=== PATIENT | female | born 1990 | race African-American/Black ===

== ENCOUNTER 2020-08-26 16:14 | Emergency (ER) | payer MEDICAID ==
[~2020-08-26] VITALS: Ht 170.2 cm; Wt 70.5 kg
[2020-08-26 17:42] VITALS: BP 103/61
[2020-08-26] MEDS ORDERED: CEPHALEXIN MONOHYDRATE 500 MG CAPSULE PO ONE (17:45)
[2020-08-26] MEDS ORDERED: SULFAMETHOX/TRIMETH DS 800-160 MG/TABLET PO ONE (17:45)
== END 2020-08-26 17:57 | disposition home or self-care (01) ==
LOC: EMS 16:14
DX: L02.416 Cutaneous abscess of left lower limb (principal); L02.415 Cutaneous abscess of right lower limb; F19.10 Other psychoactive substance abuse, uncomplicated; F41.9 Anxiety disorder, unspecified; J45.909 Unspecified asthma, uncomplicated; F32.9 Major depressive disorder, single episode, unspecified; F17.210 Nicotine dependence, cigarettes, uncomplicated; F12.90 Cannabis use, unspecified, uncomplicated
CPT/HCPCS: 99283

== ENCOUNTER 2020-09-11 18:35 | Inpatient (IN) | payer MEDICAID ==
[~2020-09-11] VITALS: Ht 160 cm; Wt 64.0 kg
[2020-09-11 20:16] LABS: COVID AG,FIA SOURCE NASOPHARYNGEAL
[2020-09-11] MEDS ORDERED: HALOPERIDOL 5 MG TABLET PO PRN (20:30)
[2020-09-12 00:19] VITALS: BP 124/83
[2020-09-12] MEDS: ZOLPIDEM TARTRATE 10 MG TABLET PO PRN (00:22)
[2020-09-12] MEDS: LORazepam 2 MG TABLET PO PRN ×3 (00:22→20:40)
[2020-09-12] MEDS ORDERED: CloNIDine HCL 0.1 MG TABLET PO PRN (07:30)
[2020-09-12] MEDS ORDERED: ACETAMINOPHEN 325 MG TABLET PO PRN (07:30)
[2020-09-12] MEDS ORDERED: ALBUTEROL SULFATE HFA 90 MCG/PUFF 8 GM INHALER IH PRN (07:30)
[2020-09-12] MEDS ORDERED: GuaiFENesin/D-METHORPHAN [SUGAR-FREE] 200-20MG/10 ML SYRUP UDCUP PO PRN (07:30)
[2020-09-12] MEDS ORDERED: PETROLATUM,WHITE 28 GM JELLY TP PRN (07:30)
[2020-09-12] MEDS ORDERED: ONDANSETRON HCL 4 MG TABLET PO PRN (07:30)
[2020-09-12] MEDS ORDERED: NICOTINE 14 MG/24 HOUR PATCH TD PRN (07:30)
[2020-09-12] MEDS ORDERED: MAG HYDROX/AL HYDROX/SIMETH ES 30 ML SUSPENSION UDCUP PO PRN (07:30)
[2020-09-12] MEDS ORDERED: DOCUSATE SODIUM 100 MG CAPSULE PO PRN (07:30)
[2020-09-12] MEDS ORDERED: LOPERAMIDE HCL 2 MG CAPSULE PO PRN (07:30)
[2020-09-12] MEDS ORDERED: MAGNESIUM HYDROXIDE SUSPENSION 30 ML UDCUP PO PRN (07:30)
[2020-09-12] MEDS ORDERED: IBUPROFEN 400 MG TABLET PO PRN (07:30)
[2020-09-12] MEDS: BACITRACIN 28 GM OINTMENT TP SCH ×2 (08:37→19:29)
[2020-09-12] MEDS: SERTRALINE HCL 50 MG TABLET PO SCH (09:42)
[2020-09-12] MEDS: OLANZapine 5 MG TABLET PO SCH ×2 (09:42→19:29)
[2020-09-12 16:15] VITALS: BP 131/65
[2020-09-13 01:05] VITALS: BP 129/70
[2020-09-13 07:38] LABS: BASOPHILS % (AUTO) 0.8 % (0.0-2.0); EOSINOPHILS % (AUTO) 4.1 % (1.0-6.0); HEMATOCRIT 38.4 % (36-46); HEMOGLOBIN 13.2 g/dL (12.0-16.0); HEMOGLOBIN A1C 5.3 % (3.8-5.6); LYMPHOCYTES # (AUTO) 1.5 K/uL (1.0-4.8); LYMPHOCYTES % (AUTO) 34.6 % (22.0-44.0); MEAN CORPUSCULAR HEMOGLOBIN 31.3 pg (26.0-34.0); MEAN CORPUSCULAR HGB CONC 34.5 G/dL (31.0-37.0); MEAN CORPUSCULAR VOLUME 91 fL (80-100); MONOCYTES # (AUTO) 0.3 K/uL (0.1-1.0); MONOCYTES % (AUTO) 6.2 % (2.0-9.0); NEUTROPHILS # (AUTO) 2.3 K/uL (1.8-7.7); NEUTROPHILS % (AUTO) 54.3 % (40.0-70.0); PLATELET COUNT (AUTO) 249 K/uL (150-450); RED BLOOD CELL COUNT(AUTO) 4.22 MIL/uL (4.00-5.20); RED CELL DISTRIBUTION WIDTH 12.6 % (11.5-14.5)
[2020-09-13 08:04] LABS: ALANINE AMINOTRANSFERASE 115 U/L (12-78); ALBUMIN 2.9 g/dL (3.4-5.0); ALKALINE PHOSPHATASE 63 U/L (46-116); ANION GAP 8 mmol/L (8-16); ASPARTATE AMINOTRANSFERASE 60 U/L (15-37); BILIRUBIN,TOTAL 0.3 mg/dL (0.1-1.0); CALCIUM, TOTAL 8.6 mg/dL (8.8-10.5); CARBON DIOXIDE 26 mmol/L (22-29); CHLORIDE 103 mmol/L (98-107); CHOL/HDL RATIO 2.3 (3.9-5.7); CHOLESTEROL 124 mg/dL (131-200); GLOMERULAR FILTR. RATE CALC > 60 mL/min (>60); GLUCOSE,RANDOM 80 mg/dL (70-110); HDL CHOLESTEROL 54 mg/dL (40-60); LDL CHOL (CALC.) 59 mg/dL (0-130); SODIUM SERUM 137 mmol/L (136-145); TRIGLYCERIDES 55 mg/dL (15-150); UREA NITROGEN, BLOOD 15 mg/dL (7-18)
[2020-09-13] MEDS: OLANZapine 5 MG TABLET PO SCH ×2 (08:58→16:27)
[2020-09-13] MEDS: SERTRALINE HCL 50 MG TABLET PO SCH (08:58)
[2020-09-13] MEDS: BACITRACIN 28 GM OINTMENT TP SCH ×2 (08:58→16:27)
[2020-09-13] MEDS: LORazepam 2 MG TABLET PO PRN ×2 (08:58→16:27)
[2020-09-13 16:17] VITALS: BP 111/62
[2020-09-14 05:05] VITALS: BP 117/64
[2020-09-14 08:30] VITALS: BP 135/84
[2020-09-14] MEDS: SERTRALINE HCL 50 MG TABLET PO SCH (09:01)
[2020-09-14] MEDS: OLANZapine 5 MG TABLET PO SCH ×2 (09:01→16:25)
[2020-09-14] MEDS: BACITRACIN 28 GM OINTMENT TP SCH ×2 (09:01→16:24)
[2020-09-14 16:32] VITALS: BP 106/65
[2020-09-15 04:56] VITALS: BP 115/66
[2020-09-15 08:33] VITALS: BP 121/56
[2020-09-15] MEDS: OLANZapine 5 MG TABLET PO SCH ×2 (08:49→18:16)
[2020-09-15] MEDS: SERTRALINE HCL 50 MG TABLET PO SCH (08:50)
[2020-09-15] MEDS: BACITRACIN 28 GM OINTMENT TP SCH ×2 (08:50→18:25)
[2020-09-15] MEDS: LORazepam 2 MG TABLET PO PRN ×2 (09:02→18:16)
[2020-09-15 16:40] VITALS: BP 130/76
[2020-09-15] MEDS: MUPIROCIN CALCIUM 2% 15 GM CREAM TP SCH (17:00)
[2020-09-16 05:57] VITALS: BP 127/68
[2020-09-16] MEDS: BACITRACIN 28 GM OINTMENT TP SCH ×2 (09:00→16:48)
[2020-09-16 09:08] VITALS: BP 124/74
[2020-09-16] MEDS: OLANZapine 5 MG TABLET PO SCH ×2 (10:48→16:47)
[2020-09-16] MEDS: SERTRALINE HCL 50 MG TABLET PO SCH (10:48)
[2020-09-16] MEDS: MUPIROCIN CALCIUM 2% 15 GM CREAM TP SCH ×2 (10:49→16:47)
[2020-09-16] MEDS: LORazepam 2 MG TABLET PO PRN ×2 (12:32→16:47)
[2020-09-16 18:08] VITALS: BP 124/67
[2020-09-17 00:59] VITALS: BP 118/65
[2020-09-17 08:18] LABS: ALANINE AMINOTRANSFERASE 153 U/L (12-78); ALBUMIN 3.3 g/dL (3.4-5.0); ALKALINE PHOSPHATASE 64 U/L (46-116); ANION GAP 8 mmol/L (8-16); ASPARTATE AMINOTRANSFERASE 71 U/L (15-37); BILIRUBIN,TOTAL 0.2 mg/dL (0.1-1.0); CALCIUM, TOTAL 8.8 mg/dL (8.8-10.5); CARBON DIOXIDE 27 mmol/L (22-29); CHLORIDE 104 mmol/L (98-107); CREATININE 0.99 mg/dL (0.60-1.30); GLOMERULAR FILTR. RATE CALC > 60 mL/min (>60); GLUCOSE,RANDOM 86 mg/dL (70-110); POTASSIUM 4.4 mmol/L (3.5-5.1); SODIUM SERUM 139 mmol/L (136-145); TOTAL PROTEIN, SERUM 7.4 g/dL (6.4-8.2); UREA NITROGEN, BLOOD 20 mg/dL (7-18)
[2020-09-17 08:19] VITALS: BP 132/63
[2020-09-17] MEDS: OLANZapine 5 MG TABLET PO SCH ×2 (08:19→16:40)
[2020-09-17] MEDS: SERTRALINE HCL 50 MG TABLET PO SCH (08:19)
[2020-09-17] MEDS: MUPIROCIN CALCIUM 2% 15 GM CREAM TP SCH (08:19)
[2020-09-17] MEDS: LORazepam 2 MG TABLET PO PRN ×3 (08:19→20:12)
[2020-09-17] MEDS: MULTIVITAMINS WITH MINERALS, THERAPEUTIC TABLET PO SCH (08:19)
[2020-09-17] MEDS: BACITRACIN 28 GM OINTMENT TP SCH ×2 (08:24→18:08)
[2020-09-17 16:19] VITALS: BP 117/78
[2020-09-17] MEDS: ZOLPIDEM TARTRATE 10 MG TABLET PO PRN (22:16)
[2020-09-18 03:37] VITALS: BP 125/71
[2020-09-18] MEDS: LORazepam 2 MG TABLET PO PRN ×3 (08:11→17:57)
[2020-09-18] MEDS: OLANZapine 5 MG TABLET PO SCH ×2 (08:11→16:41)
[2020-09-18] MEDS: MULTIVITAMINS WITH MINERALS, THERAPEUTIC TABLET PO SCH (08:11)
[2020-09-18] MEDS: BACITRACIN 28 GM OINTMENT TP SCH ×2 (08:11→17:39)
[2020-09-18] MEDS: SERTRALINE HCL 50 MG TABLET PO SCH (08:11)
[2020-09-18 08:32] VITALS: BP 124/72
[2020-09-18 16:00] VITALS: BP 125/80
[2020-09-19] VITALS: BP 126/82
[2020-09-19] MEDS: LORazepam 2 MG TABLET PO PRN (01:45)
[2020-09-19] MEDS ORDERED: OLAN5TAB52 PO (07:44)
[2020-09-19] MEDS ORDERED: SERT-158 PO (07:45)
[2020-09-19] MEDS: MULTIVITAMINS WITH MINERALS, THERAPEUTIC TABLET PO SCH (08:11)
[2020-09-19] MEDS: BACITRACIN 28 GM OINTMENT TP SCH (08:11)
[2020-09-19] MEDS: SERTRALINE HCL 50 MG TABLET PO SCH (08:11)
[2020-09-19] MEDS: OLANZapine 5 MG TABLET PO SCH (08:11)
[2020-09-19 08:23] VITALS: BP 122/58
== END 2020-09-19 09:45 | disposition home or self-care (01) | DRG 750 ==
LOC: EMS 18:35 → B3A 20:54
PROVIDERS: ADMIT Psychiatry & Neurology Psychiatry; ATTEND Psychiatry & Neurology Psychiatry
DX: F20.0 Paranoid schizophrenia (principal); R45.851 Suicidal ideations; Z59.0 Homelessness; F11.90 Opioid use, unspecified, uncomplicated; F32.9 Major depressive disorder, single episode, unspecified; F15.90 Other stimulant use, unspecified, uncomplicated; F17.200 Nicotine dependence, unspecified, uncomplicated; F42.9 Obsessive-compulsive disorder, unspecified; J45.909 Unspecified asthma, uncomplicated; F41.9 Anxiety disorder, unspecified; F19.10 Other psychoactive substance abuse, uncomplicated; Z20.822 Contact with and (suspected) exposure to COVID-19
CPT/HCPCS: 80053; 80061; 83036; 84443; 84703; 85025; 87426; 99285; G0480

== ENCOUNTER 2020-10-01 09:17 | Emergency (ER) | payer MEDICAID ==
[~2020-10-01] VITALS: Ht 160 cm; Wt 45.5 kg
[~2020-10-01 09:17] MED LIST: OLAN5TAB52 PO; SERT-158 PO
[2020-10-01 13:34] LABS: BASOPHILS % (AUTO) 0.1 % (0.0-2.0); EOSINOPHILS % (AUTO) 1.1 % (1.0-6.0); HEMATOCRIT 41.1 % (36-46); HEMOGLOBIN 14.1 g/dL (12.0-16.0); LYMPHOCYTES # (AUTO) 1.7 K/uL (1.0-4.8); LYMPHOCYTES % (AUTO) 29.7 % (22.0-44.0); MEAN CORPUSCULAR HEMOGLOBIN 31.4 pg (26.0-34.0); MEAN CORPUSCULAR HGB CONC 34.3 G/dL (31.0-37.0); MEAN CORPUSCULAR VOLUME 92 fL (80-100); MONOCYTES # (AUTO) 0.3 K/uL (0.1-1.0); MONOCYTES % (AUTO) 4.9 % (2.0-9.0); NEUTROPHILS # (AUTO) 3.7 K/uL (1.8-7.7); NEUTROPHILS % (AUTO) 64.2 % (40.0-70.0); PLATELET COUNT (AUTO) 286 K/uL (150-450); RED BLOOD CELL COUNT(AUTO) 4.49 MIL/uL (4.00-5.20); RED CELL DISTRIBUTION WIDTH 12.8 % (11.5-14.5)
[2020-10-01 13:52] LABS: ANION GAP 6 mmol/L (8-16); CARBON DIOXIDE 29 mmol/L (22-29); CHLORIDE 104 mmol/L (98-107); CREATININE 1.02 mg/dL (0.60-1.30); GLOMERULAR FILTR. RATE CALC > 60 mL/min (>60); GLUCOSE,RANDOM 83 mg/dL (70-110); POTASSIUM 3.3 mmol/L (3.5-5.1); SODIUM SERUM 139 mmol/L (136-145); UREA NITROGEN, BLOOD 15 mg/dL (7-18)
[2020-10-01 14:04] LABS: ALANINE AMINOTRANSFERASE 122 U/L (12-78); ALBUMIN 3.8 g/dL (3.4-5.0); ALKALINE PHOSPHATASE 74 U/L (46-116); ASPARTATE AMINOTRANSFERASE 66 U/L (15-37); BILIRUBIN,TOTAL 0.5 mg/dL (0.1-1.0); HCG,QUANTITATIVE < 1 mIU/mL (0-6); LIPASE 110 U/L (73-393); TOTAL PROTEIN, SERUM 7.8 g/dL (6.4-8.2)
[2020-10-01 16:41] LABS: COVID AG,FIA SOURCE NASOPHARYNGEAL
[2020-10-01] MEDS ORDERED: POTASSIUM CHLORIDE 20 MEQ ER TABLET PO ONE (17:30)
[2020-10-01 18:15] VITALS: BP 115/75
== END 2020-10-01 18:23 | disposition home or self-care (01) ==
LOC: EMS 09:20
DX: R10.84 Generalized abdominal pain (principal); F20.9 Schizophrenia, unspecified; F19.10 Other psychoactive substance abuse, uncomplicated; J45.909 Unspecified asthma, uncomplicated; F41.9 Anxiety disorder, unspecified; F32.9 Major depressive disorder, single episode, unspecified; F17.210 Nicotine dependence, cigarettes, uncomplicated; F12.90 Cannabis use, unspecified, uncomplicated; Z20.822 Contact with and (suspected) exposure to COVID-19; Z59.0 Homelessness
CPT/HCPCS: 36415; 80053; 83690; 84702; 85025; 87426; 99285; G0480; 99283